=== PATIENT | female | born 1965 | race Caucasian/White ===

== ENCOUNTER 2024-01-25 07:45 | Outpatient (CLI) | payer OTHER | END 2024-01-25 07:46 | disposition home or self-care (01) | LOC: BICMRI 07:45 | PROVIDERS: ATTEND Physician Assistant | DX: M25.512 Pain in left shoulder (principal); S43.432A Superior glenoid labrum lesion of left shoulder, initial encounter; M89.8X1 Other specified disorders of bone, shoulder ==